=== PATIENT | male | born 1990 | race Asian ===

== ENCOUNTER 2017-02-12 15:50 | Emergency (ER) | payer BC ==
[~2017-02-12] VITALS: Ht 185.4 cm; Wt 73.0 kg
[2017-02-12] MEDS ORDERED: KETOROLAC 60MG/2ML VIAL IM ONE (19:15)
[2017-02-12] MEDS ORDERED: ONDANSETRON 4MG ODT PO ONE (19:15)
[2017-02-12 19:54] VITALS: BP 145/80
== END 2017-02-12 21:53 | disposition home or self-care (01) ==
LOC: EDSEX 15:50 → ER 20:50
DX: S16.1XXA Strain of muscle, fascia and tendon at neck level, initial encounter (principal); S39.012A Strain of muscle, fascia and tendon of lower back, initial encounter; F17.200 Nicotine dependence, unspecified, uncomplicated; M25.512 Pain in left shoulder; R11.2 Nausea with vomiting, unspecified; M25.551 Pain in right hip; V49.49XA Driver injured in collision with other motor vehicles in traffic accident, initial encounter; Y93.89 Activity, other specified; Y99.9 Unspecified external cause status; Y92.89 Other specified places as the place of occurrence of the external cause
CPT/HCPCS: 96372; 99283; J1885; Q0162